=== PATIENT | female | born 1950 | race Caucasian/White ===

== ENCOUNTER 2018-06-25 08:06 | Day surgery (SDC) | payer MEDICARE, BC ==
[~2018-06-25 08:06] MED LIST: Buffered Lidocaine 0.9% SYRIN* 5 ML/SYR SYRINGE INTRADERM ONE
[2018-06-25] MEDS ORDERED: Midazolam* 1 MG/ML 5 ML VIAL (5 MG) ONE (09:51)
[2018-06-25] MEDS ORDERED: fentaNYL* 50 MCG/ML 2 ML VIAL (100 MCG VIAL) ONE (09:51)
[2018-06-25 11:33] VITALS: BP 153/75
[2018-06-25] MEDS ORDERED: Cyclopentolate 1% OPTH.SOL* 2 ML BTL ONE (12:50)
[2018-06-25] MEDS ORDERED: Lidocaine 1%* 5 ML VIAL ONE (12:50)
[2018-06-25] MEDS ORDERED: Tetracaine 0.5% OPTH.SOL 4 ML* 1 DROP BTL ONE (12:50)
[2018-06-25] MEDS ORDERED: Tropicamide 1% OPTH.SOL* BTL ONE (12:50)
[2018-06-25] MEDS ORDERED: Ketorolac 0.5% OPHTH (NF) 0.5 % 5 ML BTL ONE (12:50)
[2018-06-25] MEDS ORDERED: Phenylephrine 2.5% OPTH.SOL* 2 ML BTL ONE (12:50)
[2018-06-25] MEDS ORDERED: acetaZOLAMIDE TAB* 250 MG ONE (12:50)
[2018-06-25] MEDS ORDERED: Povidone Iodine 5% OPTH* 30 ML BTL ONE (12:50)
[2018-06-25] MEDS ORDERED: Neomycin/Polymy/Dex OPHTH.OIN* 3.5 GM ONE (12:50)
--- NOTE | 2018-06-25 16:08 | OP ---
DATE OF OPERATION: 06/25/18 [facility] DATE OF : 52 SURGEON: Rocco Dahl MD ANESTHESIA: Monitored anesthesia care. PRE-OP DIAGNOSIS: Cataract, right eye. POST-OP DIAGNOSIS: Cataract, right eye. OPERATIVE PROCEDURE: Extracapsular cataract extraction of the right eye with intraocular lens implant. IMPLANTS: SN60WF 21.5 diopter lens to the right eye. COMPLICATIONS: None. DESCRIPTION OF PROCEDURE: The patient was given phenylephrine 2.5 % and cyclopentolate 1% eye drops to the operative eye in the preoperative area. The patient was taken to the operating room where a time-out was taken to identify the correct patient, site, and side of surgery. The patient's right eye was prepped and draped in the usual sterile fashion with 5% Betadine. A second time- out was taken to verify the correct patient, side, and site of surgery, as well as the correct lens implant. A lid speculum was placed to the right eye. A 1mm paracentesis blade was used to make a clear corneal incision. Preservative-free 1% lidocaine was injected into the anterior chamber. DisCoVisc was then injected into the anterior chamber. A 2.75 mm keratome blade was used to make a triplanar incision. A cystotome initiated a capsulorrhexis, which was completed with Utrata forceps in a continuous and curvilinear manner. Hydrodissection of the lens was performed with BSS on a cannula. The lens could be spun in a capsular bag. The phacoemulsification handpiece was used with a divide-and- conquer technique to remove the nucleus. The I/A handpiece then removed the residual cortical lens material. DisCoVisc was injected to inflate the capsular bag. The planned SN60WF 21.5 diopter lens was injected into the capsular bag. The residual DisCoVisc was removed from the eye with the I/A handpiece. The corneal incisions were hydrated and no leaks occurred at physiologic pressure around 20 mmHg per palpation. The lid speculum was removed and drapes were removed. Maxitrol ointment was placed to the surface of the operative eye. An adhesive patch and shield was then placed on the operative eye. The patient was taken to the postoperative area in stable condition. [id number]/[facility] #: [id number] [facility]
== END 2018-06-25 11:40 | disposition home or self-care (01) ==
LOC: OREAST 08:06
PROVIDERS: ATTEND Student in an Organized Health Care Education/Training Program
DX: H25.11 Age-related nuclear cataract, right eye (principal); H43.813 Vitreous degeneration, bilateral; I10 Essential (primary) hypertension; E78.5 Hyperlipidemia, unspecified; E03.9 Hypothyroidism, unspecified; K21.9 Gastro-esophageal reflux disease without esophagitis; F41.8 Other specified anxiety disorders; Z86.718 Personal history of other venous thrombosis and embolism
CPT/HCPCS: A9270-GY; J2250; J3010; V2632

== ENCOUNTER 2018-07-09 08:26 | Day surgery (SDC) | payer MEDICARE, BC ==
[2018-07-09] MEDS ORDERED: fentaNYL* 50 MCG/ML 2 ML VIAL (100 MCG VIAL) ONE (09:28)
[2018-07-09] MEDS ORDERED: Midazolam* 1 MG/ML 2 ML VIAL (2 MG) ONE (09:28)
[2018-07-09 10:41] VITALS: BP 142/63
[2018-07-09] MEDS ORDERED: Phenylephrine 2.5% OPTH.SOL* 2 ML BTL ONE (14:38)
[2018-07-09] MEDS ORDERED: Ketorolac 0.5% OPHTH (NF) 0.5 % 5 ML BTL ONE (14:38)
[2018-07-09] MEDS ORDERED: Povidone Iodine 5% OPTH* 30 ML BTL ONE (14:38)
[2018-07-09] MEDS ORDERED: Tropicamide 1% OPTH.SOL* BTL ONE (14:38)
[2018-07-09] MEDS ORDERED: acetaZOLAMIDE TAB* 250 MG ONE (14:38)
[2018-07-09] MEDS ORDERED: Lidocaine 1%* 5 ML VIAL ONE (14:38)
[2018-07-09] MEDS ORDERED: Neomycin/Polymy/Dex OPHTH.OIN* 3.5 GM ONE (14:38)
[2018-07-09] MEDS ORDERED: Tetracaine 0.5% OPTH.SOL 4 ML* 1 DROP BTL ONE (14:38)
[2018-07-09] MEDS ORDERED: Cyclopentolate 1% OPTH.SOL* 2 ML BTL ONE (14:38)
--- NOTE | 2018-07-09 21:06 | OP ---
DATE OF OPERATION: 07/09/18 - [facility] DATE OF : 52 SURGEON: Rocco Dahl MD ANESTHESIA: Monitored anesthesia care. PRE-OP DIAGNOSIS: Cataract, left eye. POST-OP DIAGNOSIS: Cataract, left eye. OPERATIVE PROCEDURE: Extracapsular cataract extraction of the left eye with intraocular lens implant. IMPLANTS: SN60WF 21.0 diopter lens to the left eye. COMPLICATIONS: None. DESCRIPTION OF PROCEDURE: The patient was given phenylephrine 2.5 % and cyclopentolate 1% eye drops to the operative eye in the preoperative area. The patient was taken to the operating room where a time-out was taken to identify the correct patient, site, and side of surgery. The patient's left eye was prepped and draped in the usual sterile fashion with 5% Betadine. A second time -out was taken to verify the correct patient, side, and site of surgery, as well as the correct lens implant. A lid speculum was placed to the left eye. A 1 -mm paracentesis blade was used to make a clear corneal incision. Preservative- free 1% lidocaine was injected into the anterior chamber. DisCoVisc was then injected into the anterior chamber. A 2.75 mm keratome blade was used to make a triplanar incision. A cystotome initiated a capsulorrhexis, which was completed with Utrata forceps in a continuous and curvilinear manner. Hydrodissection of the lens was performed with BSS on a cannula. The lens could be spun in a capsular bag. The phacoemulsification handpiece was used with a [id number] technique to remove the nucleus. The I/A handpiece then removed the residual cortical lens material. DisCoVisc was injected to inflate the capsular bag. The planned SN60WF 21.0 diopter lens was injected into the capsular bag. The residual DisCoVisc was removed from the eye with the I/A handpiece. The corneal incisions were hydrated and no leaks occurred at physiologic pressure around 20 mmHg per palpation. The lid speculum was removed and drapes were removed. Maxitrol ointment was placed to the surface of the operative eye. An adhesive patch and shield was then placed on the operative eye. The patient was taken to the postoperative area in stable condition. [id number]/[facility] #: [id number] [facility]
== END 2018-07-09 10:45 | disposition home or self-care (01) ==
LOC: OREAST 08:26
PROVIDERS: ATTEND Student in an Organized Health Care Education/Training Program
DX: H25.12 Age-related nuclear cataract, left eye (principal); H43.813 Vitreous degeneration, bilateral; I10 Essential (primary) hypertension; K21.9 Gastro-esophageal reflux disease without esophagitis; E03.9 Hypothyroidism, unspecified; F41.8 Other specified anxiety disorders; Z87.442 Personal history of urinary calculi
CPT/HCPCS: A9270-GY; J2250; J3010; V2632

== ENCOUNTER 2021-07-23 09:24 | Observation (INO) ==
[~2021-07-23 09:24] MED LIST changes: -Buffered Lidocaine 0.9% SYRIN* 5 ML/SYR SYRINGE INTRADERM ONE; +Buffered Lidocaine 1% SYRIN 1 ml INTRADERM ONE; +Lactated Ringers 1000 ml BAG 1,000 ML IV SCH; +Naloxone 0.4 mg VIAL 0.4 mg/ml 1 ml VIAL IV PRN; +Prochlorperazine 5 mg/ml 2 ml VIAL (10 mg) IV PRN; +ceFAZolin 2 GM in NS PREMIX 2 GM/100 ML BAG IVPB ONE; +diPHENhydraMINE IV 50 MG/ML 1 ml VIAL (BENADRYL) IV PRN
[2021-07-23] MEDS ORDERED: Rocuronium 50 mg VIAL 10 mg/ml 5 ml VIAL (50 mg) ONE ×2 (10:35→12:17)
[2021-07-23] MEDS ORDERED: HYDROmorphone 1 MG/1 ML SYRINGE ONE ×2 (10:39→14:32)
[2021-07-23] MEDS ORDERED: Midazolam 2 mg/2 ml VIAL 1 mg/ml 2 ml VIAL (2 mg) ONE (10:39)
[2021-07-23] MEDS ORDERED: fentaNYL 250 mcg/5 ml 50 MCG/ML 5 ml VIAL (250 MCG) ONE (10:39)
[2021-07-23] MEDS ORDERED: Sterile Water for Inj 10 ML ONE (10:39)
[2021-07-23] MEDS ORDERED: Ondansetron 4 mg VIAL 2 MG/ML 2 ml VIAL ONE ×2 (10:50→13:59)
[2021-07-23] MEDS ORDERED: Gelfoam 12-7 ADSORBABL SPONGE ONE (11:37)
[2021-07-23] MEDS ORDERED: Thrombin 5,000 UNITS(BOVINE) for Ultrasound Guided Pseudoaneursym ONE (11:37)
[2021-07-23] MEDS ORDERED: Propofol 10 MG/ML 20 ML BTL ONE (11:40)
[2021-07-23] MEDS ORDERED: ceFAZolin VIAL VIAL ONE (11:46)
[2021-07-23] MEDS ORDERED: Dexamethasone IV 4 MG/ML VIAL 1 ml VIAL ONE (13:58)
[2021-07-23] MEDS ORDERED: Phenylephrine IV 10 MG/ML 1 ml VIAL ONE (13:59)
[2021-07-23] MEDS ORDERED: EPHEDrine (Pressors) 50 MG/ML VIAL ONE (13:59)
[2021-07-23] MEDS ORDERED: Ondansetron 4 mg VIAL 2 MG/ML 2 ml VIAL IV PRN (14:15)
[2021-07-23] MEDS ORDERED: Magnesium Hydroxide LIQ 30 ML UDC PO PRN (14:15)
[2021-07-23] MEDS: HYDROmorphone 1 MG/1 ML SYRINGE IV PRN ×3 (14:35→15:16)
[2021-07-23] MEDS ORDERED: Lactated Ringers 1000 ml BAG 1,000 ML IV SCH (15:00)
[2021-07-25 07:53] VITALS: BP 112/54
[2021-07-25] MEDS ORDERED: Cholecalciferol (VIT D3) 1,000 unit TAB PO SCH (09:00)
[2021-07-25] MEDS ORDERED: Docusate LIQ 100 MG/10 ML UDC PO SCH (09:00)
[2021-07-25] MEDS ORDERED: Vitamin THERAPEUTIC TAB PO SCH (09:00)
== END 2021-07-25 10:50 | disposition home or self-care (01) ==
LOC: SSU 09:24 → OR 09:24
PROVIDERS: ADMIT Neurological Surgery; ATTEND Neurological Surgery